=== PATIENT | male | born 1935 | race African-American/Black ===

== ENCOUNTER 2021-03-08 22:32 | Inpatient (IN) | payer OTHER ==
[2021-03-08] MEDS ORDERED: LIDOCAINE 5% TOPICAL PATCH TP ONE (23:27)
[2021-03-08] MEDS ORDERED: ACETAMINOPHEN 325 MG TABLET (FP) PO ONE (23:27)
[2021-03-08 23:32] LABS: BASO % 1.1 % (0-2.0); HEMOGLOBIN 12.7 GM/dL (11.7-16.9); LYMPH % 31.7 % (8-40); MCH 26.6 pg (25.7-33.7); MCHC 32.6 g/dl (32.0-35.9); MEAN CELL VOLUME 81.4 fl (80-96); MEAN PLT VOLUME 7.6 fl (7.5-11.1); MONO % 15.2 % (3.8-10.2); PLATELET COUNT 344 10^3/uL (134-434); RBC 4.79 M/mm3 (4.00-5.60); RDW 16.3 % (11.9-15.9); WHITE BLOOD COUNT 4.3 K/mm3 (4.0-10.0)
[2021-03-08] MEDS ORDERED: ACETAMINOPHEN 325 MG TABLET (FP) ONE (23:43)
[2021-03-08] MEDS ORDERED: LIDOCAINE 5% TOPICAL PATCH ONE (23:43)
[2021-03-08 23:51] LABS: CHLORIDE 103 mmol/L (98-107); SODIUM 136 mmol/L (136-145)
[2021-03-08 23:53] LABS: ALBUMIN 3.8 g/dl (3.4-5.0); ANION GAP 6 MMOL/L (8-16); CALCIUM 9.3 mg/dL (8.5-10.1); CO2 27 mmol/L (21-32)
[2021-03-08 23:54] LABS: BLOOD UREA NITROGEN 8.3 mg/dL (7-18); GLUCOSE,RANDOM 91 mg/dL (74-106); MAGNESIUM 2.1 mg/dL (1.8-2.4)
[2021-03-08 23:55] LABS: SGPT/ALT 31 U/L (13-61)
[2021-03-08 23:57] LABS: CREATININE 0.9 mg/dL (0.55-1.3); SGOT/AST 29 U/L (15-37)
[2021-03-08 23:58] LABS: BILIRUBIN,TOTAL 0.5 mg/dL (0.2-1); TOT PROT 7.9 g/dl (6.4-8.2)
[2021-03-08 23:59] LABS: ALK PHOS 59 U/L (45-117)
[2021-03-09 07:26] LABS: EOS % 1.4 % (0-4.5); HEMOGLOBIN 12.6 GM/dL (11.7-16.9); LYMPH % 39.3 % (8-40); MCH 26.4 pg (25.7-33.7); MCHC 32.3 g/dl (32.0-35.9); MEAN CELL VOLUME 81.8 fl (80-96); MEAN PLT VOLUME 8.1 fl (7.5-11.1); MONO % 13.7 % (3.8-10.2); NEUT % 44.6 % (42.8-82.8); PLATELET COUNT 346 10^3/uL (134-434); RBC 4.77 M/mm3 (4.00-5.60); RDW 16.3 % (11.9-15.9); WHITE BLOOD COUNT 3.5 K/mm3 (4.0-10.0)
[2021-03-09 07:33] LABS: INR 1.45 (0.83-1.09); PROTHROMBIN TIME (PATIENT) 17.4 SEC (9.7-13.0)
[2021-03-09 07:47] LABS: CHLORIDE 103 mmol/L (98-107); SODIUM 138 mmol/L (136-145)
[2021-03-09 07:51] LABS: ALBUMIN 3.7 g/dl (3.4-5.0); ANION GAP 6 MMOL/L (8-16); CALCIUM 9.9 mg/dL (8.5-10.1); CO2 28 mmol/L (21-32); GLUCOSE,RANDOM 90 mg/dL (74-106); MAGNESIUM 2.1 mg/dL (1.8-2.4)
[2021-03-09 07:54] LABS: CREATININE 0.9 mg/dL (0.55-1.3); SGOT/AST 20 U/L (15-37); SGPT/ALT 26 U/L (13-61)
[2021-03-09 07:55] LABS: CHOLESTEROL 82 mg/dL (50-200); PHOSPHOROUS 3.9 mg/dL (2.5-4.9); TRIGLYCERIDES 75 mg/dL (0-150)
[2021-03-09 07:56] LABS: HDL CHOLESTEROL 31 mg/dL (40-60); LDL CHOLESTEROL (ONLY SJRH) 35 mg/dL (5-100); TOT PROT 7.4 g/dl (6.4-8.2)
[2021-03-09 07:58] LABS: ALK PHOS 57 U/L (45-117)
[2021-03-09 07:59] LABS: BLOOD UREA NITROGEN 6.9 mg/dL (7-18)
[2021-03-09 08:11] LABS: LDH 200 U/L (87-246)
[2021-03-09 08:13] LABS: BILIRUBIN,TOTAL 0.6 mg/dL (0.2-1)
[2021-03-09] MEDS ORDERED: HYDROCHLOROTHIAZIDE 25 MG TABLET (FP) PO SCH (10:00)
[2021-03-09] MEDS ORDERED: APIXABAN 5 MG TABLET PO SCH (10:00)
[2021-03-09] MEDS ORDERED: amLODIPine BESYLATE 10 MG TABLET (FP) PO SCH (10:00)
[2021-03-09] MEDS ORDERED: METOPROLOL TARTRATE 50 MG TABLET (FP) PO SCH (10:00)
[2021-03-09] MEDS ORDERED: LOSARTAN POTASSIUM 25 MG TABLET PO SCH (10:00)
[2021-03-09 15:46] LABS: PH,URINE 8.5 (5.0-8.0); URINE APPEARANCE CLEAR; URINE BILIRUBIN NEGATIVE (NEGATIVE); URINE COLOR YELLOW; URINE GLUCOSE (UA) NEGATIVE (NEGATIVE); URINE KETONE NEGATIVE (NEGATIVE); URINE LEUK ESTERASE NEGATIVE (NEGATIVE); URINE NITRITE NEGATIVE (NEGATIVE); URINE PROTEIN NEGATIVE (NEGATIVE); URINE UROBILINOGEN 0.2 mg/dL (0.2-1.0)
[2021-03-09] MEDS: LIDOCAINE PATCH REMOVAL MC SCH ×2 (16:13→22:57)
[2021-03-09] MEDS: ZINC SULFATE 220 MG CAPSULE (FP) PO SCH (16:14)
[2021-03-09] MEDS: INSULIN SLIDING SCALE (NOVOLOG) 1 VIAL SQ SCH ×3 (16:14→23:00)
[2021-03-09] MEDS: CHOLECALCIFEROL (VIT D3) 5000 UNITS (125 MCG) CAP PO SCH (16:14)
[2021-03-09] MEDS: ASCORBIC ACID 500 MG TABLET (FP) PO SCH (16:14)
[2021-03-09] MEDS: APIXABAN 5 MG TABLET PO SCH ×2 (16:14→22:56)
[2021-03-09] MEDS ORDERED: WARFARIN NA 3 MG TABLET PO SCH (18:00)
[2021-03-09] MEDS ORDERED: ATORVASTATIN CA 10 MG TABLET (FP) PO SCH (22:00)
[2021-03-09] MEDS: FLUTICASONE/SALMETEROL 100 MCG/50 MCG DISKUS IH SCH (22:57)
[2021-03-09] MEDS: ATORVASTATIN CA 40 MG TABLET (FP) PO SCH (22:57)
[2021-03-10] MEDS: INSULIN SLIDING SCALE (NOVOLOG) 1 VIAL SQ SCH ×4 (06:31→22:09)
[2021-03-10 07:11] LABS: BASO % 1.5 % (0-2.0); EOS % 0.9 % (0-4.5); HEMOGLOBIN 12.7 GM/dL (11.7-16.9); LYMPH % 33.5 % (8-40); MCH 26.4 pg (25.7-33.7); MCHC 32.5 g/dl (32.0-35.9); MEAN CELL VOLUME 81.3 fl (80-96); MEAN PLT VOLUME 7.6 fl (7.5-11.1); MONO % 14.8 % (3.8-10.2); NEUT % 49.3 % (42.8-82.8); PLATELET COUNT 335 10^3/uL (134-434); WHITE BLOOD COUNT 4.9 K/mm3 (4.0-10.0)
[2021-03-10 07:53] LABS: ALBUMIN 3.6 g/dl (3.4-5.0); BILIRUBIN,TOTAL 0.4 mg/dL (0.2-1); BLOOD UREA NITROGEN 14.3 mg/dL (7-18); CALCIUM 10.2 mg/dL (8.5-10.1); CREATININE 1.1 mg/dL (0.55-1.3); MAGNESIUM 2.2 mg/dL (1.8-2.4); PHOSPHOROUS 4.8 mg/dL (2.5-4.9); TOT PROT 7.3 g/dl (6.4-8.2)
[2021-03-10] MEDS ORDERED: PT OWN MED DRAWER 7, Y5N ONE (09:02)
[2021-03-10] MEDS: CHOLECALCIFEROL (VIT D3) 5000 UNITS (125 MCG) CAP PO SCH (09:21)
[2021-03-10] MEDS: amLODIPine BESYLATE 10 MG TABLET (FP) PO SCH (09:21)
[2021-03-10] MEDS: APIXABAN 5 MG TABLET PO SCH ×2 (09:21→22:09)
[2021-03-10] MEDS: ASCORBIC ACID 500 MG TABLET (FP) PO SCH (09:21)
[2021-03-10] MEDS: ZINC SULFATE 220 MG CAPSULE (FP) PO SCH (09:21)
[2021-03-10] MEDS: FLUTICASONE/SALMETEROL 100 MCG/50 MCG DISKUS IH SCH ×2 (09:31→22:10)
[2021-03-10 15:43] VITALS: BMI 21.1
[2021-03-10] MEDS: ATORVASTATIN CA 40 MG TABLET (FP) PO SCH (22:09)
[2021-03-10] MEDS: LIDOCAINE PATCH REMOVAL MC SCH (22:10)
[2021-03-11] MEDS: INSULIN SLIDING SCALE (NOVOLOG) 1 VIAL SQ SCH ×4 (06:32→21:40)
[2021-03-11 06:36] LABS: HEMATOCRIT 39.8 % (35.4-49); HEMOGLOBIN 12.4 GM/dL (11.7-16.9); MCH 25.7 pg (25.7-33.7); MCHC 31.2 g/dl (32.0-35.9); MEAN CELL VOLUME 82.4 fl (80-96); MEAN PLT VOLUME 8.2 fl (7.5-11.1); PLATELET COUNT 310 10^3/uL (134-434); RBC 4.82 M/mm3 (4.00-5.60); RDW 16.2 % (11.9-15.9); WHITE BLOOD COUNT 3.9 K/mm3 (4.0-10.0)
[2021-03-11 06:51] LABS: CHLORIDE 108 mmol/L (98-107); SODIUM 139 mmol/L (136-145)
[2021-03-11 06:54] LABS: ANION GAP 6 MMOL/L (8-16); BLOOD UREA NITROGEN 11.1 mg/dL (7-18); CO2 25 mmol/L (21-32); GLUCOSE,RANDOM 104 mg/dL (74-106)
[2021-03-11 06:57] LABS: MAGNESIUM 2.1 mg/dL (1.8-2.4); PHOSPHOROUS 4.1 mg/dL (2.5-4.9)
[2021-03-11 07:00] LABS: CREATININE 0.9 mg/dL (0.55-1.3)
[2021-03-11 07:43] LABS: ERYTHROCYTE SEDIMENTATION RATE 13 mm/hr (0-20)
[2021-03-11] MEDS: CHOLECALCIFEROL (VIT D3) 5000 UNITS (125 MCG) CAP PO SCH (09:54)
[2021-03-11] MEDS: ASCORBIC ACID 500 MG TABLET (FP) PO SCH (09:54)
[2021-03-11] MEDS: ZINC SULFATE 220 MG CAPSULE (FP) PO SCH (09:54)
[2021-03-11] MEDS: FLUTICASONE/SALMETEROL 100 MCG/50 MCG DISKUS IH SCH ×2 (09:54→21:39)
[2021-03-11] MEDS: APIXABAN 5 MG TABLET PO SCH ×2 (09:54→21:34)
[2021-03-11] MEDS: amLODIPine BESYLATE 10 MG TABLET (FP) PO SCH (09:54)
[2021-03-11] MEDS: ATORVASTATIN CA 40 MG TABLET (FP) PO SCH (21:34)
[2021-03-11] MEDS: LIDOCAINE PATCH REMOVAL MC SCH (21:39)
[2021-03-12 06:33] VITALS: PULSE 65
[2021-03-12] MEDS: INSULIN SLIDING SCALE (NOVOLOG) 1 VIAL SQ SCH (06:34)
[2021-03-12 08:41] VITALS: BP 136/71; TEMP 97.8
[2021-03-12] MEDS ORDERED: PT OWN MED DRAWER 7, Y5N ONE (08:52)
[2021-03-12] MEDS: ASCORBIC ACID 500 MG TABLET (FP) PO SCH (09:01)
[2021-03-12] MEDS: amLODIPine BESYLATE 10 MG TABLET (FP) PO SCH (09:01)
[2021-03-12] MEDS: APIXABAN 5 MG TABLET PO SCH (09:01)
[2021-03-12] MEDS: FLUTICASONE/SALMETEROL 100 MCG/50 MCG DISKUS IH SCH (09:01)
[2021-03-12] MEDS: CHOLECALCIFEROL (VIT D3) 5000 UNITS (125 MCG) CAP PO SCH (09:01)
[2021-03-12] MEDS: ZINC SULFATE 220 MG CAPSULE (FP) PO SCH (09:01)
== END 2021-03-12 10:40 | disposition home or self-care (01) | DRG 70 ==
LOC: JER 22:32 → JERBED 03-09 02:25 → J4S 03-09 15:41
PROVIDERS: ADMIT Internal Medicine; ATTEND Internal Medicine
DX: G93.41 Metabolic encephalopathy (principal); U07.1 COVID-19; G45.9 Transient cerebral ischemic attack, unspecified; R47.01 Aphasia; E11.9 Type 2 diabetes mellitus without complications; I10 Essential (primary) hypertension; R41.82 Altered mental status, unspecified; F03.90 Unspecified dementia, unspecified severity, without behavioral disturbance, psychotic disturbance, mood disturbance, and anxiety; E78.5 Hyperlipidemia, unspecified; M54.5 Low back pain; R47.9 Unspecified speech disturbances; Z79.01 Long term (current) use of anticoagulants; Z86.718 Personal history of other venous thrombosis and embolism
CPT/HCPCS: 36415; 70450-TC; 70551-TC; 71045-TC-FY; 80048; 80053; 80061; 81003; 82550; 82553; 82607; 82728; 82747; 82962; 83036; 83615; 83721; 83735; 84100; 84439; 84443; 84484; 85014; 85025; 85027; 85379; 85610; 85651; 85730; 86140; 86769; 87086; 93005; 93010; 93306-TC; 93880-TC; 97116-GP; 97161-GP; 99285-25; C9803; U0003; U0005

== ENCOUNTER 2022-06-14 23:49 | Emergency (ER) | payer OTHER ==
[2022-06-14 23:55] VITALS: BP 181/80; PULSE 70; RESP 18; TEMP 98; BMI 24.2
[2022-06-15 01:37] LABS: BASO % 0.6 % (0-2.0); EOS % 1.6 % (0-4.5); HEMATOCRIT 39.2 % (35.4-49); HEMOGLOBIN 12.5 GM/dL (11.7-16.9); LYMPH % 34.7 % (8-40); MCH 26.1 pg (25.7-33.7); MEAN CELL VOLUME 81.6 fl (80-96); MEAN PLT VOLUME 7.4 fl (7.5-11.1); MONO % 11.3 % (3.8-10.2); NEUT % 51.8 % (42.8-82.8); PLATELET COUNT 262 10^3/uL (134-434); RDW 14.8 % (11.9-15.9); WHITE BLOOD COUNT 4.9 K/mm3 (4.0-10.0)
[2022-06-15 01:48] LABS: ACTIVATED PTT 33.2 SECONDS (25.2-36.5)
[2022-06-15 01:58] LABS: CALCIUM 9.8 mg/dL (8.5-10.1)
[2022-06-15 01:59] LABS: MAGNESIUM 2.1 mg/dL (1.8-2.4)
[2022-06-15 02:01] LABS: ALBUMIN 3.6 g/dl (3.4-5.0); BLOOD UREA NITROGEN 7.6 mg/dL (7-18)
[2022-06-15 02:04] LABS: PHOSPHOROUS 1.8 mg/dL (2.5-4.9)
[2022-06-15 02:05] LABS: BILIRUBIN,TOTAL 0.2 mg/dL (0.2-1)
[2022-06-15 02:06] LABS: INR 1.25 (0.83-1.09); PROTHROMBIN TIME (PATIENT) 14.4 SEC (9.7-13.0); TOT PROT 7.4 g/dl (6.4-8.2)
[2022-06-15] MEDS ORDERED: LACTULOSE 20 GM/30 ML UDC (FOR ORAL USE ONLY) PO ONE (02:52)
[2022-06-15] MEDS ORDERED: LACTULOSE 20 GM/30 ML UDC (FOR ORAL USE ONLY) ONE (02:56)
== END 2022-06-15 03:25 | disposition home or self-care (01) ==
LOC: JER 23:49
DX: R14.1 Gas pain (principal); M54.50 Low back pain, unspecified; K59.00 Constipation, unspecified
CPT/HCPCS: 0241U-QW; 36415; 70450-TC; 72125-TC; 80053; 80061; 83036; 83735; 84100; 84484; 85025; 85610; 85730; 86850; 86900; 86901; 93005; 93010; 99285-25

== ENCOUNTER 2023-02-19 11:23 | Emergency (ER) | payer OTHER ==
[2023-02-19 11:52] VITALS: BMI 22.6
[2023-02-19 13:58] LABS: HEMOGLOBIN 14.7 GM/dL (11.7-16.9); MCH 28.3 pg (25.7-33.7); MCHC 32.7 g/dl (32.0-35.9); MEAN CELL VOLUME 86.5 fl (80-96); MEAN PLT VOLUME 7.8 fl (7.5-11.1); PLATELET COUNT 295 10^3/uL (134-434); RDW 16.4 % (11.9-15.9); WHITE BLOOD COUNT 8.6 K/mm3 (4.0-10.0)
[2023-02-19 14:32] LABS: POTASSIUM 5.4 mmol/L (3.5-5.1)
[2023-02-19 14:34] LABS: BLOOD UREA NITROGEN 7.5 mg/dL (7-18); CALCIUM 9.9 mg/dL (8.5-10.1)
[2023-02-19 14:35] LABS: ALBUMIN 3.4 g/dl (3.4-5.0)
[2023-02-19 14:38] LABS: CREATININE 0.5 mg/dL (0.55-1.3)
[2023-02-19 14:39] LABS: BILIRUBIN,TOTAL 0.6 mg/dL (0.2-1); TOT PROT 7.7 g/dl (6.4-8.2)
[2023-02-19] MEDS ORDERED: SODIUM CHLORIDE 1,000 ML IV STA (14:58)
[2023-02-19 15:47] VITALS: TEMP 97.6
[2023-02-19 16:30] LABS: POTASSIUM 4.6 mmol/L (3.5-5.1)
[2023-02-19 16:32] LABS: BLOOD UREA NITROGEN 7.1 mg/dL (7-18)
[2023-02-19 16:35] LABS: CREATININE 0.4 mg/dL (0.55-1.3)
[2023-02-19] MEDS ORDERED: BACITRACIN ZINC 15 GM TUBE TOPICAL OINTMENT TP ONE (17:08)
[2023-02-19 17:23] LABS: POTASSIUM 4.3 mmol/L (3.5-5.1)
[2023-02-19 17:25] LABS: BLOOD UREA NITROGEN 7.4 mg/dL (7-18)
[2023-02-19 17:29] LABS: CREATININE 0.4 mg/dL (0.55-1.3)
[2023-02-19] MEDS ORDERED: BACITRACIN 0.9 GM PACKET ONE (17:52)
[2023-02-19 23:09] VITALS: BP 148/86; PULSE 70; RESP 18
== END 2023-02-19 23:15 | disposition home or self-care (01) ==
LOC: JER 11:23
PROC: 3E0337Z Introduction of Electrolytic and Water Balance Substance into Peripheral Vein, Percutaneous Approach (ICD-10-PCS; principal; 2023-02-19)
DX: L13.9 Bullous disorder, unspecified (principal); E87.1 Hypo-osmolality and hyponatremia; L89.159 Pressure ulcer of sacral region, unspecified stage
CPT/HCPCS: 36415; 80048; 80053; 85027; 99284-25

== ENCOUNTER 2023-11-19 11:38 | Observation (INO) | payer OTHER ==
[2023-11-19 12:59] LABS: BASO % 0.8 % (0-2.0); EOS % 3.8 % (0-4.5); HEMATOCRIT 38.2 % (35.4-49); HEMOGLOBIN 12.4 GM/dL (11.7-16.9); LYMPH % 27.1 % (8-40); MCH 27.3 pg (25.7-33.7); MCHC 32.6 g/dl (32.0-35.9); MEAN CELL VOLUME 83.9 fl (80-96); MEAN PLT VOLUME 8.8 fl (7.5-11.1); MONO % 12.7 % (3.8-10.2); NEUT % 55.6 % (42.8-82.8); PLATELET COUNT 232 10^3/uL (134-434); RBC 4.55 M/mm3 (4.00-5.60); RDW 14.8 % (11.9-15.9); WHITE BLOOD COUNT 4.7 K/mm3 (4.0-10.0)
[2023-11-19 13:09] LABS: INR 1.38 (0.83-1.09)
[2023-11-19 13:12] LABS: ACTIVATED PTT 33.2 SECONDS (25.2-36.5)
[2023-11-19 13:22] LABS: POTASSIUM 3.8 mmol/L (3.5-5.1)
[2023-11-19 13:24] LABS: CALCIUM 9.4 mg/dL (8.5-10.1)
[2023-11-19 13:25] LABS: BLOOD UREA NITROGEN 6.6 mg/dL (7-18); MAGNESIUM 1.9 mg/dL (1.8-2.4)
[2023-11-19 13:28] LABS: CREATININE 0.5 mg/dL (0.55-1.3); PHOSPHOROUS 3.1 mg/dL (2.5-4.9)
[2023-11-19 13:29] LABS: BILIRUBIN,TOTAL 0.3 mg/dL (0.2-1); TOT PROT 7.1 g/dl (6.4-8.2)
[2023-11-19 13:50] LABS: VENOUS BASE EXCESS -0.7 mmol/L (-2-2); VENOUS PCO2 39.7 mmHg (38-52); VENOUS PH 7.399 (7.310-7.410)
[2023-11-19 17:07] LABS: EPI CELLS 29 /uL (0-25.1); HYALINE CASTS 0 /uL (0-3.1); PH,URINE 7.5 (5.0-8.0); URINE APPEARANCE CLEAR; URINE BILIRUBIN NEGATIVE (NEGATIVE); URINE COLOR YELLOW; URINE GLUCOSE (UA) NEGATIVE (NEGATIVE); URINE KETONE NEGATIVE (NEGATIVE); URINE LEUK ESTERASE 2+ (NEGATIVE); URINE NITRITE POSITIVE (NEGATIVE); URINE PROTEIN NEGATIVE (NEGATIVE); URINE RBC 1265 /uL (0-23.9); URINE WBC 91 /uL (0-25.8)
[2023-11-19 17:33] LABS: URINE BACTERIA 560.5 /uL (0-1359)
[2023-11-19] MEDS ORDERED: CEFTRIAXONE 1 GM/50 ML BAG ONE (17:41)
[2023-11-19] MEDS: CEFTRIAXONE 1 GM in DEXTROSE 5%-WATER - 100 ML IVPB ONE (18:07)
[2023-11-20 02:59] VITALS: BMI 25.2
[2023-11-20] MEDS: INSULIN ASPART SLIDING SCALE (NOVOLOG) 1 VIAL SQ SCH (06:15)
[2023-11-20] MEDS ORDERED: ARTIFICIAL TEARS OPHTHALMIC DROPS OU PRN (09:23)
[2023-11-20 09:58] LABS: BASO % 0.6 % (0-2.0); EOS % 3.8 % (0-4.5); HEMOGLOBIN 12.1 GM/dL (11.7-16.9); LYMPH % 33.4 % (8-40); MCH 27.2 pg (25.7-33.7); MCHC 32.7 g/dl (32.0-35.9); MEAN CELL VOLUME 83.4 fl (80-96); MEAN PLT VOLUME 8.5 fl (7.5-11.1); MONO % 11.2 % (3.8-10.2); PLATELET COUNT 240 10^3/uL (134-434); RBC 4.44 M/mm3 (4.00-5.60); RDW 14.8 % (11.9-15.9); WHITE BLOOD COUNT 5.5 K/mm3 (4.0-10.0)
[2023-11-20] MEDS: APIXABAN 5 MG TABLET PO SCH (10:35)
[2023-11-20] MEDS: FAMOTIDINE 20 MG TABLET PO SCH (10:35)
[2023-11-20] MEDS: CEFTRIAXONE 1 GM in DEXTROSE 5%-WATER - 50 ML IVPB SCH (10:35)
[2023-11-20] MEDS: SODIUM CHLORIDE 1,000 ML IV SCH (10:35)
[2023-11-20 10:39] LABS: CALCIUM 9.4 mg/dL (8.5-10.1)
[2023-11-20 10:42] LABS: CREATININE 0.4 mg/dL (0.55-1.3)
[2023-11-20] MEDS: ACETAMINOPHEN 1000 MG/100 ML BAG IVPB PRN (18:18)
[2023-11-20] MEDS: DOCUSATE SODIUM 100 MG CAPSULE (FP) PO SCH (23:55)
[2023-11-20] MEDS: DONEPEZIL HCL 10 MG TABLET (FP) PO SCH (23:55)
[2023-11-20] MEDS: MONTELUKAST NA 10 MG TABLET PO SCH (23:55)
[2023-11-20] MEDS: ATORVASTATIN CA 40 MG TABLET (FP) PO SCH (23:55)
[2023-11-21] MEDS: ACETAMINOPHEN 1000 MG/100 ML BAG IVPB PRN (02:41)
[2023-11-21 08:31] LABS: BASO % 0.8 % (0-2.0); HEMATOCRIT 36.7 % (35.4-49); HEMOGLOBIN 12.1 GM/dL (11.7-16.9); LYMPH % 23.4 % (8-40); MCH 27.4 pg (25.7-33.7); MCHC 32.9 g/dl (32.0-35.9); MEAN CELL VOLUME 83.4 fl (80-96); MEAN PLT VOLUME 8.9 fl (7.5-11.1); MONO % 10.1 % (3.8-10.2); NEUT % 61.7 % (42.8-82.8); PLATELET COUNT 233 10^3/uL (134-434); RDW 15.1 % (11.9-15.9); WHITE BLOOD COUNT 5.4 K/mm3 (4.0-10.0)
[2023-11-21 09:17] LABS: CALCIUM 9.3 mg/dL (8.5-10.1); POTASSIUM 3.7 mmol/L (3.5-5.1)
[2023-11-21 09:18] LABS: ALBUMIN 3.3 g/dl (3.4-5.0); BLOOD UREA NITROGEN 6.4 mg/dL (7-18)
[2023-11-21 09:21] LABS: CREATININE 0.4 mg/dL (0.55-1.3)
[2023-11-21 09:23] LABS: BILIRUBIN,TOTAL 0.4 mg/dL (0.2-1); TOT PROT 7.1 g/dl (6.4-8.2)
[2023-11-22 14:24] VITALS: RESP 18
[2023-11-22 18:46] VITALS: BP 140/82; PULSE 85; TEMP 98
== END 2023-11-22 18:50 | disposition home or self-care (01) ==
LOC: JER 11:38 → JERBED 17:28 → J6S 23:17
PROVIDERS: ADMIT Internal Medicine; ATTEND Internal Medicine
PROC: 3E033NZ Introduction of Analgesics, Hypnotics, Sedatives into Peripheral Vein, Percutaneous Approach (ICD-10-PCS; principal; 2023-11-19)
PROC: 3E03329 Introduction of Other Anti-infective into Peripheral Vein, Percutaneous Approach (ICD-10-PCS; 2023-11-19)
PROC: 3E0337Z Introduction of Electrolytic and Water Balance Substance into Peripheral Vein, Percutaneous Approach (ICD-10-PCS; 2023-11-19)
DX: S31.000A Unspecified open wound of lower back and pelvis without penetration into retroperitoneum, initial encounter (principal); X58.XXXA Exposure to other specified factors, initial encounter; G89.29 Other chronic pain; M54.9 Dorsalgia, unspecified; Z86.718 Personal history of other venous thrombosis and embolism; Z86.711 Personal history of pulmonary embolism; G62.9 Polyneuropathy, unspecified; E78.5 Hyperlipidemia, unspecified; E11.9 Type 2 diabetes mellitus without complications; I10 Essential (primary) hypertension; F03.90 Unspecified dementia, unspecified severity, without behavioral disturbance, psychotic disturbance, mood disturbance, and anxiety; G93.41 Metabolic encephalopathy; N39.0 Urinary tract infection, site not specified; I48.91 Unspecified atrial fibrillation
CPT/HCPCS: 0241U-QW; 36415; 70450-TC; 71045-TC-FY; 80048; 80053; 80307; 81003; 82140; 82803; 82962; 83036; 83735; 84100; 84443; 84484; 85025; 85610; 85730; 87040; 87086; 93005; 93010; 96365; 96366; 96375; 96376; 99285-25; G0378; J0131

== ENCOUNTER 2024-06-18 20:13 | Emergency (ER) | payer OTHER ==
[2024-06-18 20:24] VITALS: RESP 18
[2024-06-18 22:38] LABS: BASO % 0.9 % (0-2.0); EOS % 3.7 % (0-4.5); HEMATOCRIT 39.2 % (35.4-49); HEMOGLOBIN 12.7 GM/dL (11.7-16.9); MCH 26.4 pg (25.7-33.7); MCHC 32.3 g/dl (32.0-35.9); MEAN CELL VOLUME 81.6 fl (80-96); MEAN PLT VOLUME 8.4 fl (7.5-11.1); MONO % 12.4 % (3.8-10.2); PLATELET COUNT 211 10^3/uL (134-434); RBC 4.81 M/mm3 (4.00-5.60); RDW 15.1 % (11.9-15.9); WHITE BLOOD COUNT 5.7 K/mm3 (4.0-10.0)
[2024-06-18 22:44] LABS: INR 1.22 (0.83-1.09)
[2024-06-18 22:47] LABS: ACTIVATED PTT 34.7 SECONDS (25.2-36.5)
[2024-06-18] MEDS ORDERED: ACETAMINOPHEN INJECTION 100 ML ONE (22:55)
[2024-06-18 22:59] LABS: POTASSIUM 4.1 mmol/L (3.5-5.1)
[2024-06-18 23:01] LABS: CALCIUM 9.5 mg/dL (8.5-10.1)
[2024-06-18 23:02] LABS: ALBUMIN 3.4 g/dl (3.4-5.0); BLOOD UREA NITROGEN 12.5 mg/dL (7-18); EPI CELLS 3 /uL (0-25.1); HYALINE CASTS 0 /uL (0-3.1); URINE APPEARANCE CLEAR; URINE BACTERIA 153 /uL (0-1359); URINE BILIRUBIN NEGATIVE (NEGATIVE); URINE COLOR YELLOW; URINE GLUCOSE (UA) NEGATIVE (NEGATIVE); URINE KETONE NEGATIVE (NEGATIVE); URINE LEUK ESTERASE TRACE (NEGATIVE); URINE NITRITE NEGATIVE (NEGATIVE); URINE PROTEIN NEGATIVE (NEGATIVE); URINE WBC 28 /uL (0-25.8)
[2024-06-18 23:05] LABS: CREATININE 0.5 mg/dL (0.55-1.3)
[2024-06-18 23:06] LABS: BILIRUBIN,TOTAL 0.2 mg/dL (0.2-1); TOT PROT 7.5 g/dl (6.4-8.2)
[2024-06-18] MEDS: ACETAMINOPHEN 1000 MG/100 ML BAG IVPB ONE (23:07)
[2024-06-18 23:20] LABS: URINE RBC 587.3 /uL (0-23.9)
[2024-06-19 06:17] VITALS: BP 161/77; PULSE 58; TEMP 98.4
== END 2024-06-19 06:16 | disposition home or self-care (01) ==
LOC: JER 20:13
PROC: 3E033NZ Introduction of Analgesics, Hypnotics, Sedatives into Peripheral Vein, Percutaneous Approach (ICD-10-PCS; principal; 2024-06-18)
DX: R07.89 Other chest pain (principal); R05.9 Cough, unspecified; Z20.822 Contact with and (suspected) exposure to COVID-19
CPT/HCPCS: 0241U-QW; 36415; 71045-TC-FY; 80053; 81003; 83880; 84484; 85025; 85610; 85730; 87086; 87186; 93005; 93010; 99285-25; J0131